=== PATIENT | male | born 2000 | race Hispanic/Latino ===

== ENCOUNTER 2023-09-23 09:23 | Emergency (ER) | payer SELFPAY ==
[2023-09-23 09:19] VITALS: BP 120/80; PULSE 72; RESP 25; TEMP 36.7; O2SAT 100
[2023-09-23 09:28] VITALS: O2SAT 100
--- NOTE | 2023-09-23 09:34 | ED.ALLEREA ---
HPI - Allergic Reaction General Chief complaint: Allergic Reaction Stated complaint: allergic reaction History of Present Illness HPI narrative: 23-year-old history of leukemia presents to the emergency room evaluation of allergic reaction following a wasp sting to the back of his left leg. According to witnesses on the scene, patient was stung in the back of the left leg by a wasp, immediately began experiencing difficulty breathing, and a systemic rash. EMS was on scene several minutes later, found patient to be hypotensive. IV was started, a L of fluid was given, patient was given 0.3 of epi, and 50 of Benadryl. repeat blood pressure showed a 120/80. currently patient is not complaining of any shortness of breath, difficulty breathing or swelling of his throat. Related Data Allergies Allergy/AdvReac Type Severity Reaction Status Date / Time No Known Allergies Allergy Verified 09/23/23 09:30 Review of Systems Review of Systems: ROS unremarkable except for noted in HPI Exam Narrative: GENERAL: Well-appearing, well-nourished, no physical limitations HEAD: Normocephalic, atraumatic. ENT: no oropharyngeal erythema or edema EYES: Conjunctivae normal, PERRLA and EOMI. CHEST: Clear to auscultation. No respiratory distress. No wheezes rales or rhonchi. HEART: Regular rate and rhythm. No murmur heard. Normal peripheral pulses. ABDOMEN: Soft, nontender, nondistended, normal active bowel sounds. EXTREMITIES: Normal range of motion. No edema. No clubbing or cyanosis SKIN: Systemic urticaria NEURO: No focal deficits. Alert and oriented x3. MAEW. CN's II-XI intact bilaterally, normal gait PSYCH: Cooperative. Normal mood and affect. Course Vital Signs Vital signs: Vital Signs Temperature 36.7 C 09/23/23 09:19 Pulse Rate 72 09/23/23 09:19 Respiratory Rate 25 H 09/23/23 09:19 Blood Pressure 120/80 09/23/23 09:19 Pulse Oximetry 100 09/23/23 09:19 Oxygen Delivery Room Air 09/23/23 09:19 Temperature 36.7 C 09/23/23 09:19 Pulse Rate 55 L 09/23/23 12:30 Respiratory Rate 13 09/23/23 12:30 Blood Pressure 107/61 09/23/23 12:30 Pulse Oximetry 100 09/23/23 12:30 Oxygen Delivery Room Air 09/23/23 09:28 Discharge Plan Discharge Clinical Impression: Allergic reaction, Anaphylaxis, Urticaria Patient Disposition: Home, Self-Care Condition: Stable Instructions: Antibiotic Form, Anaphylaxis (ED) Prescriptions: New epinephrine [EpiPen 2-Deven] 0.3 mg/0.3 mL auto-injector 0.3 mg IM ONCE Qty: 2 0RF Rx Instructions: as a single dose; may repeat once Follow-up/Referrals: UNKNOWN,DOCTOR [Primary Care Provider] - Time of Disposition: 13:38
[2023-09-23] MEDS: FAMOTIDINE 20 MG/2 ML VIAL IV PUSH (09:49)
[2023-09-23 11:13] VITALS: BP 113/67; PULSE 58; RESP 18; O2SAT 100
[2023-09-23 12:30] VITALS: BP 107/61; PULSE 55; RESP 13; O2SAT 100
[2023-09-23 14:00] VITALS: BP 116/70; PULSE 82; RESP 21; O2SAT 100
== END 2023-09-23 14:07 | disposition home or self-care (01) ==
PROVIDERS: Emergency Provider Nurse Practitioner Family
DX: T63.461A Toxic effect of venom of wasps, accidental (unintentional), initial encounter (principal); T78.2XXA Anaphylactic shock, unspecified, initial encounter; L50.0 Allergic urticaria
CPT/HCPCS: 96374; 99284

== ENCOUNTER 2023-09-24 08:14 | Emergency (ER) | payer SELFPAY ==
[2023-09-24 08:34] VITALS: BP 132/75; PULSE 61; RESP 18; TEMP 36.3; O2SAT 98
== END 2023-09-24 09:09 | disposition left against medical advice (07) ==
LOC: ANHED 09:06
DX: R21 Rash and other nonspecific skin eruption (principal)
CPT/HCPCS: 99199